=== PATIENT | male | born 1965 | race Two or more races ===

== ENCOUNTER 2020-03-31 11:25 | Outpatient (CLI) | payer OTHER | END 2020-03-31 23:59 | disposition home or self-care (01) | LOC: MSC 11:25 | PROVIDERS: ATTEND Internal Medicine | DX: G62.9 Polyneuropathy, unspecified (principal); R00.2 Palpitations; M19.071 Primary osteoarthritis, right ankle and foot; M19.072 Primary osteoarthritis, left ankle and foot; M75.111 Incomplete rotator cuff tear or rupture of right shoulder, not specified as traumatic; I10 Essential (primary) hypertension; E29.1 Testicular hypofunction; F39 Unspecified mood [affective] disorder; Z79.891 Long term (current) use of opiate analgesic; Z79.899 Other long term (current) drug therapy ==

== ENCOUNTER 2020-05-03 13:25 | Outpatient (CLI) | payer OTHER | END 2020-05-03 23:59 | disposition home or self-care (01) | LOC: MSC 13:25 | PROVIDERS: ATTEND Internal Medicine | DX: M19.072 Primary osteoarthritis, left ankle and foot (principal); M19.071 Primary osteoarthritis, right ankle and foot; G62.9 Polyneuropathy, unspecified; R00.2 Palpitations; M75.101 Unspecified rotator cuff tear or rupture of right shoulder, not specified as traumatic; E55.9 Vitamin D deficiency, unspecified; I10 Essential (primary) hypertension; E29.1 Testicular hypofunction; F39 Unspecified mood [affective] disorder; R73.9 Hyperglycemia, unspecified; Z79.1 Long term (current) use of non-steroidal anti-inflammatories (NSAID); Z79.891 Long term (current) use of opiate analgesic; Z79.899 Other long term (current) drug therapy ==

== ENCOUNTER 2020-10-01 13:25 | Outpatient (CLI) | payer BC, OTHER | END 2020-10-01 23:59 | disposition home or self-care (01) | LOC: MSC 13:25 | PROVIDERS: ATTEND Internal Medicine | DX: M19.071 Primary osteoarthritis, right ankle and foot (principal); M19.072 Primary osteoarthritis, left ankle and foot; G62.9 Polyneuropathy, unspecified; M75.100 Unspecified rotator cuff tear or rupture of unspecified shoulder, not specified as traumatic; R00.2 Palpitations; I10 Essential (primary) hypertension; E03.9 Hypothyroidism, unspecified; E29.1 Testicular hypofunction; F39 Unspecified mood [affective] disorder; Z79.899 Other long term (current) drug therapy; K58.9 Irritable bowel syndrome, unspecified; G89.29 Other chronic pain; F17.290 Nicotine dependence, other tobacco product, uncomplicated; F90.9 Attention-deficit hyperactivity disorder, unspecified type; F41.9 Anxiety disorder, unspecified ==